=== PATIENT | female | born 1955 | race Caucasian/White ===

== ENCOUNTER 2021-09-04 11:52 | Day surgery (SDC) | payer MEDICARE, OTHER ==
[~2021-09-04] VITALS: Ht 177.8 cm; Wt 96.0 kg
[~2021-09-04 11:52] MED LIST: AVAPRO300 MG PO; CHLORTHALIDONE25 MG PO; FIBER500 MG PO; HYDROCHLOROTHIA25 MG PO; K-TAB ER20 MEQ PO; LEVOTHYROXINE112 MC1 PO; LOSARTAN POTAS100 MG PO; METOPROLOL TART25 MG PO; SIMVASTATIN20 MG PO
--- NOTE | 2021-09-04 13:58 | NUR ---
09/04/21 1359 Yamilet Burris 1357-PATIENT ARRIVED TO PACU ON 2L NC RR EVEN AWAKE AND DROWSY DENIES PAIN OR NAUSEA. LAYING LEFT LATERAL ABDOMEN SOFT. IVF INFUSING. PATIENT DOZES TO SLEEP.
--- NOTE | 2021-09-05 14:08 | OR ---
[facility] [address], [place] [address] Signed DATE OF OPERATION: 09/04/2021 SURGEON: Nasrin Banks MD PREOPERATIVE DIAGNOSIS: Colon screening. POSTOPERATIVE DIAGNOSIS: Normal colon to cecum. PROCEDURE: Total colonoscopy to cecum. ANESTHESIA: Intravenous sedation, fentanyl 100 mcg and Versed 7 mg. INDICATIONS: This 65-year-old white woman is a patient of [facility]. She underwent colonoscopy in the [place] area at age 53, which was said to be normal. She is here for colon screening upon referral from [facility]. She understands the risks of bleeding, infection, and perforation and wished to proceed. Notably, she has no symptoms of bleeding, diarrhea, or constipation and no family history of colon cancer. FINDINGS: The prep was excellent. Complete colonoscopy was undertaken to the cecum, which was normal. DESCRIPTION OF PROCEDURE: The patient was brought to the endoscopy suite and placed in lateral decubitus position given intravenous sedation to the point of slurred speech and nystagmus. Full cardiopulmonary monitoring was maintained. Digital rectal examination was normal. An Olympus video colonoscope was passed in the rectum and manipulated throughout the colon ultimately intubating the cecum itself. Abdominal wall stabilization was required for full intubation of the colon. The ileocecal valve normal and appendiceal orifice normal. The scope was withdrawn and examination throughout showed no sign of polyps, diverticular formation, colitis, or cancer. Retroflexed view was normal as well. She did have some hypertrophied anal papilla of no concern. The scope was removed. The patient was taken to the recovery room in good condition. Electronically Signed By: NASRIN BANKS MD 09/05/21 1408 PATIENT NAME: TIARA MASCORRO OPERATIVE REPORT DATE OF : 51 REPORT #: [id number] PHYSICIAN: NASRIN BANKS MD PCP: URBAN MENDIOLA REPORT IS CONFIDENTIAL AND NOT TO BE RELEASED WITHOUT AUTHORIZATION [facility] [address], [place] [address] Signed CONCLUDING DIAGNOSIS: Normal colon. PLAN: Recommend repeat colonoscopy in 10 years or sooner if clinically indicated. She will return to the ongoing care of [facility]. MD AYAZ Christine/MODL /[id number] cc: [facility] Copies: URBAN MENDIOLA ~ Electronically Signed By: NASRIN BANKS MD 09/05/21 1408 PATIENT NAME: MALIA MASCORROBrittany PINA OPERATIVE REPORT DATE OF : 51 REPORT #: [id number] PHYSICIAN: NASRIN BANKS MD PCP: URBAN MENDIOLA REPORT IS CONFIDENTIAL AND NOT TO BE RELEASED WITHOUT AUTHORIZATION
== END 2021-09-04 14:42 | disposition home or self-care (01) ==
LOC: DS 11:52 → OPS 11:52 → DS 13:00 → OPS 13:00
PROVIDERS: ATTEND Surgery
PROC: 0DJD8ZZ Inspection of Lower Intestinal Tract, Via Natural or Artificial Opening Endoscopic (ICD-10-PCS; principal; 2021-09-04 13:00)
DX: Z12.11 Encounter for screening for malignant neoplasm of colon (principal); I10 Essential (primary) hypertension; E03.9 Hypothyroidism, unspecified; E78.5 Hyperlipidemia, unspecified; K62.89 Other specified diseases of anus and rectum
CPT/HCPCS: J2250; J3010; J7121